=== PATIENT | female | born 1945 | race Caucasian/White ===

== ENCOUNTER 2017-02-28 14:18 | Inpatient (IN) | payer MEDICARE, BC ==
[2017-02-28] MEDS: SOD CHLORIDE 0.9% 500 ML IV (18:54)
[2017-02-28] MEDS ORDERED: SOD CHLORIDE 0.9% 500 ML IV (18:54)
[2017-02-28 19:59] LABS: ADD MAN DIFF? NO
[2017-02-28 20:08] LABS: BASOPHILS % 0.4 % (0.0-2.0); EOSINOPHILS % 0.3 % (0.0-7.0); HEMATOCRIT 38.9 % (37.0-47.0); HEMOGLOBIN 13.2 g/dl (12.0-16.0); LYMPHOCYTES # 2.1 10^3/ul (0.8-2.9); LYMPHOCYTES % 18.9 % (15.0-51.0); MEAN CORPUSCULAR HEMOGLOBIN 31.7 pg (29.0-33.0); MEAN CORPUSCULAR HGB CONC 33.9 g/dl (32.0-37.0); MEAN CORPUSCULAR VOLUME 93.5 fl (82.0-101.0); MONOCYTES % 9.4 % (0.0-11.0); NEUTROPHIL # 7.8 10^3/ul (1.6-7.5); NEUTROPHILS % 70.6 % (39.0-77.0); PLATELET COUNT 290 10^3/UL (140-415); RED BLOOD COUNT 4.16 10^6/ul (4.20-5.40); RED CELL DISTRIBUTION WIDTH 13.7 % (11.5-14.5)
[2017-02-28 20:25] LABS: INR 0.82; PROTIME 11.3 Sec (11.9-14.9); PT RATIO 0.9
[2017-02-28 20:26] LABS: PARTIAL THROMBOPLASTIN TIME 24.1 Sec (25.0-35.0)
[2017-02-28] MEDS: morphine 4 MG/ML VIAL IV (20:41)
[2017-02-28] MEDS: ONDANSETRON 4 MG INJ IV (20:41)
[2017-02-28 20:43] LABS: ANION GAP 16 (8-16); BLOOD UREA NITROGEN 23 mg/dl (7-20); CALCIUM 9.1 mg/dl (8.4-10.2); CARBON DIOXIDE 27 mmol/L (21-31); CHLORIDE 103 mmol/L (97-110); CREATININE 0.95 mg/dl (0.44-1.00); GLUCOSE 104 mg/dl (70-220); POTASSIUM 3.6 mmol/L (3.5-5.1); SODIUM 142 mmol/L (135-144)
[2017-02-28 20:54] LABS: TROPONIN-I < 0.012 ng/ml (0.00-0.12)
[2017-02-28] MEDS: SOD CHLORIDE 0.9% 100 ML (21:18)
[2017-02-28] MEDS: IODIXANOL LOCM 100 ML BTL (21:18)
[2017-02-28] MEDS ORDERED: ACETAMINOPHEN 325 MG TAB PO (23:30)
[2017-02-28] MEDS ORDERED: ONDANSETRON 4 MG INJ IV (23:30)
[2017-03-01] MEDS ORDERED: ALPRAZOLAM 1 MG TAB PO (00:30)
[2017-03-01] MEDS ORDERED: ALBUTEROL HFA 8 GM INHALER INH (00:30)
[2017-03-01] MEDS: LEVOTHYROXINE 100 MCG TAB PO (06:09)
[2017-03-01] MEDS: PANTOPRAZOLE (EC) 40 MG TAB PO (06:09)
[2017-03-01] MEDS ORDERED: ESTROGENS CONJUGATED 0.625 MG TAB PO (09:00)
[2017-03-01] MEDS ORDERED: MEDROXYPROGESTERONE 2.5 MG TAB PO (09:00)
[2017-03-01] MEDS: POTASSIUM CHLORIDE (SR) 8 MEQ CAP PO ×3 (09:28→21:31)
[2017-03-01] MEDS: LAMOTRIGINE 100 MG TAB PO (09:28)
[2017-03-01] MEDS: PAROXETINE 20 MG TAB PO (09:28)
[2017-03-01] MEDS: HYDROCHLOROTHIAZIDE 25 MG TAB PO (09:29)
[2017-03-01] MEDS: LOSARTAN 50 MG TAB PO (09:29)
[2017-03-01] MEDS: ALPRAZOLAM 0.25 MG TAB PO (09:31)
[2017-03-01] MEDS: ESTROGENS CONJUGATED 0.625 MG TAB PO (09:34)
[2017-03-01] MEDS: MEDROXYPROGESTERONE 10 MG TAB PO (09:35)
[2017-03-01] MEDS: DILTIAZEM 30 MG TAB PO ×2 (09:37→21:00)
[2017-03-01] MEDS: PREMPRO PO (10:19)
[2017-03-01 21:55] LABS: TROPONIN-I < 0.012 ng/ml (0.00-0.12)
[2017-03-01 22:19] LABS: ERYTHROCYTE SEDIMENTATION RATE 25 mm/Hr (0-30)
[2017-03-01] MEDS: EZETIMIBE 10 MG TAB PO (22:21)
[2017-03-02] MEDS: LEVOTHYROXINE 100 MCG TAB PO (06:32)
[2017-03-02] MEDS: PANTOPRAZOLE (EC) 40 MG TAB PO (06:32)
[2017-03-02 07:25] LABS: ADD MAN DIFF? NO
[2017-03-02 07:29] LABS: BASOPHILS % 0.4 % (0.0-2.0); EOSINOPHILS # 0.1 10^3/ul (0.0-0.5); EOSINOPHILS % 0.9 % (0.0-7.0); HEMATOCRIT 35.3 % (37.0-47.0); HEMOGLOBIN 11.6 g/dl (12.0-16.0); LYMPHOCYTES % 28.8 % (15.0-51.0); MEAN CORPUSCULAR HEMOGLOBIN 30.8 pg (29.0-33.0); MEAN CORPUSCULAR HGB CONC 32.9 g/dl (32.0-37.0); MEAN CORPUSCULAR VOLUME 93.6 fl (82.0-101.0); MEAN PLATELET VOLUME 11.2 fl (7.4-10.4); MONOCYTE # 0.6 10^3/ul (0.3-0.9); MONOCYTES % 8.9 % (0.0-11.0); NEUTROPHIL # 4.2 10^3/ul (1.6-7.5); NEUTROPHILS % 60.9 % (39.0-77.0); PLATELET COUNT 237 10^3/UL (140-415); RED BLOOD COUNT 3.77 10^6/ul (4.20-5.40); RED CELL DISTRIBUTION WIDTH 13.8 % (11.5-14.5)
[2017-03-02 07:30] LABS: POSITIVE DIFF @See below
[2017-03-02 07:55] LABS: ALANINE AMINOTRANSFERASE 36 IU/L (13-69); ALBUMIN 3.5 g/dl (3.3-4.9); ALBUMIN/GLOBULIN RATIO 1.12; ALKALINE PHOSPHATASE 83 IU/L (42-121); ANION GAP 11 (8-16); ASPARTATE AMINO TRANSFERASE 25 IU/L (15-46); BILIRUBIN,INDIRECT 0.1 mg/dl (0-1.1); BILIRUBIN,TOTAL 0.1 mg/dl (0.2-1.3); BLOOD UREA NITROGEN 20 mg/dl (7-20); CALCIUM 8.8 mg/dl (8.4-10.2); CARBON DIOXIDE 31 mmol/L (21-31); CHLORIDE 102 mmol/L (97-110); CREATININE 0.96 mg/dl (0.44-1.00); GLUCOSE 101 mg/dl (70-220); SODIUM 140 mmol/L (135-144); TOTAL PROTEIN 6.6 g/dl (6.1-8.1)
[2017-03-02 08:02] LABS: ADD UMIC NO; UR ASCORBIC ACID NEGATIVE (NEGATIVE); UR BILIRUBIN (Dip) NEGATIVE (NEGATIVE); UR BLOOD (Dip) NEGATIVE (NEGATIVE); UR CLARITY CLEAR (CLEAR); UR COLOR STRAW (YELLOW); UR GLUCOSE (Dip) NEGATIVE (NEGATIVE); UR KETONES (Dip) NEGATIVE (NEGATIVE); UR LEUKOCYTE ESTERASE (Dip) NEGATIVE Leu/ul (NEGATIVE); UR NITRITE (Dip) NEGATIVE (NEGATIVE); UR TOTAL PROTEIN (Dip) NEGATIVE (NEGATIVE); UR UROBILINOGEN (Dip) NEGATIVE (NEGATIVE)
[2017-03-02 08:07] LABS: TROPONIN-I < 0.012 ng/ml (0.00-0.12)
[2017-03-02] MEDS: HYDROCHLOROTHIAZIDE 25 MG TAB PO (09:50)
[2017-03-02] MEDS: LAMOTRIGINE 100 MG TAB PO (09:50)
[2017-03-02] MEDS: LOSARTAN 50 MG TAB PO (09:50)
[2017-03-02] MEDS: POTASSIUM CHLORIDE (SR) 8 MEQ CAP PO ×3 (09:51→20:18)
[2017-03-02] MEDS: DILTIAZEM 30 MG TAB PO ×2 (09:51→20:19)
[2017-03-02] MEDS: PAROXETINE 20 MG TAB PO (09:51)
[2017-03-02] MEDS: PREMPRO PO (09:51)
[2017-03-02] MEDS: EZETIMIBE 10 MG TAB PO (20:19)
[2017-03-02 23:26] LABS: AMPHETAMINE/METHAMPHETAMINE Negative (NEGATIVE); BARBITURATES Negative (NEGATIVE); BENZODIAZEPINES Positive (NEGATIVE); CANNABINOIDS Negative (NEGATIVE); COCAINE Negative (NEGATIVE); OPIATES Negative (NEGATIVE)
[2017-03-03] MEDS: LEVOTHYROXINE 100 MCG TAB PO (06:01)
[2017-03-03] MEDS: PANTOPRAZOLE (EC) 40 MG TAB PO (06:01)
[2017-03-03] MEDS: PREMPRO PO (09:00)
[2017-03-03] MEDS: DILTIAZEM 30 MG TAB PO ×2 (09:32→20:32)
[2017-03-03] MEDS: LOSARTAN 50 MG TAB PO (09:33)
[2017-03-03] MEDS: POTASSIUM CHLORIDE (SR) 8 MEQ CAP PO ×3 (09:33→20:32)
[2017-03-03] MEDS: HYDROCHLOROTHIAZIDE 25 MG TAB PO (09:33)
[2017-03-03] MEDS: PAROXETINE 20 MG TAB PO (09:33)
[2017-03-03] MEDS: LAMOTRIGINE 100 MG TAB PO (09:35)
[2017-03-03] MEDS: EZETIMIBE 10 MG TAB PO (20:32)
[2017-03-04] MEDS ORDERED: traMADol 50 MG TAB PO (06:00)
[2017-03-04] MEDS: PANTOPRAZOLE (EC) 40 MG TAB PO (06:47)
[2017-03-04] MEDS: LEVOTHYROXINE 100 MCG TAB PO (06:47)
[2017-03-04] MEDS: LAMOTRIGINE 100 MG TAB PO (09:00)
[2017-03-04] MEDS: PREMPRO PO (09:00)
[2017-03-04] MEDS: POTASSIUM CHLORIDE (SR) 8 MEQ CAP PO ×3 (10:37→21:21)
[2017-03-04] MEDS: PAROXETINE 20 MG TAB PO (10:37)
[2017-03-04] MEDS: LOSARTAN 50 MG TAB PO (10:38)
[2017-03-04] MEDS: HYDROCHLOROTHIAZIDE 25 MG TAB PO (10:38)
[2017-03-04] MEDS: DILTIAZEM 30 MG TAB PO ×2 (10:39→21:26)
[2017-03-04] MEDS: EZETIMIBE 10 MG TAB PO (21:20)
[2017-03-04] MEDS: ALPRAZOLAM 0.25 MG TAB PO (21:20)
[2017-03-05] MEDS: traMADol 50 MG TAB PO (01:58)
[2017-03-05] MEDS: LEVOTHYROXINE 100 MCG TAB PO (06:00)
[2017-03-05] MEDS: PANTOPRAZOLE (EC) 40 MG TAB PO (06:00)
[2017-03-05] MEDS: PREMPRO PO (09:00)
[2017-03-05] MEDS: ARIPIPRAZOLE 5 MG TAB PO (09:00)
[2017-03-05] MEDS: PAROXETINE 20 MG TAB PO (09:00)
[2017-03-05] MEDS: REGADENOSON 0.4 MG/5 ML SYG (10:14)
[2017-03-05] MEDS: LOSARTAN 50 MG TAB PO (11:14)
[2017-03-05] MEDS: HYDROCHLOROTHIAZIDE 25 MG TAB PO (11:14)
[2017-03-05] MEDS: DILTIAZEM 30 MG TAB PO ×2 (11:15→21:25)
[2017-03-05] MEDS: LAMOTRIGINE 100 MG TAB PO (11:15)
[2017-03-05] MEDS: NEOMYC/POLYMYX/BACIT 30 GM OINT TOP ×2 (11:15→21:24)
[2017-03-05] MEDS: POTASSIUM CHLORIDE (SR) 8 MEQ CAP PO ×3 (11:15→21:00)
[2017-03-05] MEDS: CIPROFLOXACIN 500 MG TAB PO (19:00)
[2017-03-05] MEDS: EZETIMIBE 10 MG TAB PO (21:25)
[2017-03-06] MEDS: traMADol 50 MG TAB PO (01:17)
[2017-03-06] MEDS: ALPRAZOLAM 0.25 MG TAB PO (04:16)
[2017-03-06] MEDS: LEVOTHYROXINE 100 MCG TAB PO (06:51)
[2017-03-06] MEDS: CIPROFLOXACIN 500 MG TAB PO ×2 (06:51→18:12)
[2017-03-06] MEDS: PANTOPRAZOLE (EC) 40 MG TAB PO (06:51)
[2017-03-06] MEDS: LAMOTRIGINE 100 MG TAB PO (11:06)
[2017-03-06] MEDS: POTASSIUM CHLORIDE (SR) 8 MEQ CAP PO ×3 (11:06→20:52)
[2017-03-06] MEDS: PREMPRO PO (11:06)
[2017-03-06] MEDS: HYDROCHLOROTHIAZIDE 25 MG TAB PO (11:06)
[2017-03-06] MEDS: LOSARTAN 50 MG TAB PO (11:08)
[2017-03-06] MEDS: OLANZAPINE 5 MG TAB PO (11:08)
[2017-03-06] MEDS: DILTIAZEM 30 MG TAB PO ×2 (11:08→20:54)
[2017-03-06] MEDS: NEOMYC/POLYMYX/BACIT 30 GM OINT TOP ×2 (15:00→20:54)
[2017-03-06] MEDS: EZETIMIBE 10 MG TAB PO (20:52)
[2017-03-07] MEDS: PANTOPRAZOLE (EC) 40 MG TAB PO (05:48)
[2017-03-07] MEDS: CIPROFLOXACIN 500 MG TAB PO (05:48)
[2017-03-07] MEDS: LEVOTHYROXINE 100 MCG TAB PO (05:48)
[2017-03-07] MEDS: DILTIAZEM 30 MG TAB PO (09:49)
[2017-03-07] MEDS: LOSARTAN 50 MG TAB PO (09:49)
[2017-03-07] MEDS: POTASSIUM CHLORIDE (SR) 8 MEQ CAP PO (09:50)
[2017-03-07] MEDS: OLANZAPINE 5 MG TAB PO (09:50)
[2017-03-07] MEDS: HYDROCHLOROTHIAZIDE 25 MG TAB PO (09:50)
[2017-03-07] MEDS: PREMPRO PO (09:50)
[2017-03-07] MEDS: LAMOTRIGINE 100 MG TAB PO (09:50)
== END 2017-03-07 14:48 | disposition home or self-care (01) | DRG 312 ==
LOC: MS4 23:10 → FTE 14:18
DX: R55 Syncope and collapse (principal); G45.9 Transient cerebral ischemic attack, unspecified; R56.9 Unspecified convulsions; N39.0 Urinary tract infection, site not specified; I10 Essential (primary) hypertension; E11.9 Type 2 diabetes mellitus without complications; B96.20 Unspecified Escherichia coli [E. coli] as the cause of diseases classified elsewhere; S80.02XA Contusion of left knee, initial encounter; E03.9 Hypothyroidism, unspecified; E78.5 Hyperlipidemia, unspecified; F31.9 Bipolar disorder, unspecified; J45.909 Unspecified asthma, uncomplicated; G43.109 Migraine with aura, not intractable, without status migrainosus; G47.30 Sleep apnea, unspecified; S80.01XA Contusion of right knee, initial encounter; S61.512A Laceration without foreign body of left wrist, initial encounter; S61.511A Laceration without foreign body of right wrist, initial encounter; V43.53XA Car driver injured in collision with pick-up truck in traffic accident, initial encounter; Y93.9 Activity, unspecified; Y92.414 Local residential or business street as the place of occurrence of the external cause; Y99.8 Other external cause status; Z86.73 Personal history of transient ischemic attack (TIA), and cerebral infarction without residual deficits
CPT/HCPCS: 36415; 70450; 70552; 71045; 71260; 72125; 73110-LT; 73110-RT; 73562; 74176; 74177; 78452; 80048; 80053; 80307; 81003; 84484; 85025; 85610; 85651; 85730; 87040; 87086; 93005; 93017; 93306; 93880; 95819; 96374; 96375; 99285-25; G0378